=== PATIENT | male | born 1950 | race Asian ===

== ENCOUNTER 2024-01-25 12:34 | Outpatient (CLI) | payer MEDICARE, SELFPAY ==
--- NOTE | 2024-01-25 12:42 | ECHO_ITS ---
Patient Info Name: Gladys Latham Age: 73 years : 1950 Gender: Male Ht: 68 in Wt: 206 lbs BSA: 2.15 m2 HR: 100 bpm BP: 175 / 91 mmHg Heart Rhythm: Sinus Rhythm Technical Quality: Fair Exam Date: 01/25/2024 12:52 PM Exam Location: Echo Lab Patient Status: Outpatient Admit Date: 01/25/2024 Staff Ordering Physician: Fely Thompson MD Vehicle Check In Clerk: Shelly Whitman RDCS Attending Provider: Fely Thompson MD Exam Type: CA echo doppler color flow Study Info Indications R01.1 - Cardiac murmur, unspecified Complete two-dimensional, color flow and Doppler transthoracic echocardiogram is performed. Summary 1. Complete two-dimensional, color flow and Doppler transthoracic echocardiogram is performed. 2. Left ventricular chamber dimension is normal. 3. Left ventricular systolic function is normal, estimated at 65-70%. 4. The left ventricular diastolic function is grade I diastolic dysfunction. 5. E/e' 16 is elevated. 6. There is moderate aortic valve sclerosis. 7. The mitral valve has moderately calcified annulus. 8. There is trace tricuspid valve regurgitation. 9. No pulmonary hypertension, estimated pulmonary arterial systolic pressure is 22 mmHg. Left Ventricle E/e' 16 is elevated. Left ventricular chamber dimension is normal. Left ventricular systolic function is normal, estimated at 65-70%. The left ventricular diastolic function is grade I diastolic dysfunction. Right Ventricle Right ventricular systolic function is normal and with normal TAPSE 2.0 cm. Right ventricular chamber dimension is normal. Left Atria Left atrial chamber dimension is normal. Right Atria Right atrial chamber dimension is normal. Aortic Valve The aortic valve is trileaflet. There is moderate aortic valve sclerosis. There is no aortic valve stenosis. There is no aortic valve regurgitation. Pulmonic Valve There is no pulmonic regurgitation. Mitral Valve The mitral valve has moderately calcified annulus. There is no mitral valve stenosis. There is no mitral valve regurgitation. Tricuspid Valve There is trace tricuspid valve regurgitation. No pulmonary hypertension, estimated pulmonary arterial systolic pressure is 22 mmHg. Pericardium/Pleural There is no pericardial effusion. Inferior Vena Cava Normal inferior vena cava with >50% collapse upon inspiration consistent with normal right atrial pressure, 5 mmHg. Aorta The aortic root size at the sinus of Valsalva is normal. Left Ventricular Outflow Tract Name Value Normal LVOT 2D LVOT Diameter 2.0 cm LVOT Doppler LVOT Peak Gradient 10 mmHg LVOT Mean Gradient 5 mmHg LVOT VTI 27 cm LVOT VTI/AV VTI Ratio 0.8 LVOT Stroke Volume 80 ml LVOT CO 7.0 l/min LVOT CI 3.2 l/min/m2 Pulmonic Valve Name Value Normal RVOT Doppler
== END 2024-01-25 12:35 | disposition home or self-care (01) ==
LOC: ANHCARD 12:37
PROVIDERS: PCP Family Medicine; Visit Provider Family Medicine
DX: R01.1 Cardiac murmur, unspecified (principal); I11.9 Hypertensive heart disease without heart failure; I35.8 Other nonrheumatic aortic valve disorders; I34.81 Nonrheumatic mitral (valve) annulus calcification
CPT/HCPCS: 93306

== ENCOUNTER 2024-01-26 11:33 | Outpatient (CLI) | payer MEDICARE, SELFPAY ==
[2024-01-26 12:23] LABS: Alanine Aminotransferase 28 U/L (6-50); Albumin Level 4.5 g/dL (3.5-5.1); Alkaline Phosphatase 55 U/L (38-126); Anion Gap 9 mmol/L (4-12); Aspartate Amino Transferase 34 U/L (17-59); Bilirubin,Total 0.8 mg/dL (0.2-1.3); Blood Urea Nitrogen 11 mg/dL (9-20); Calcium 9.4 mg/dL (8.4-10.2); Carbon Dioxide 26 mmol/L (22-30); Chloride 99 mmol/L (98-107); Estimated Glomerular Filt Rate > 60; Glucose 91 mg/dL (65-110); Potassium 3.9 mmol/L (3.4-5.0); Sodium 134 mmol/L (137-145)
[2024-01-26 12:55] LABS: Vitamin D 25 Hydroxy 48.1 ng/mL
[2024-01-26 13:00] LABS: Hemoglobin A1C 6.3 % (<5.7)
[2024-01-26 13:08] LABS: MALB Creatinine Ratio 99.3 mg/g (0-30); Microalbumin Urine Random 39.7 mg/L (0-16.7)
[2024-01-30 16:09] LABS: PSA, Free 3.6 ng/mL; PSA, Total 11.3 ng/mL (< OR = 4.0); Percent Free Prostate Spec Ag NOT CALCULATED % (calc) (>25)
== END 2024-01-26 11:34 | disposition home or self-care (01) ==
PROVIDERS: PCP Family Medicine; Visit Provider Family Medicine
DX: E53.8 Deficiency of other specified B group vitamins (principal); E55.9 Vitamin D deficiency, unspecified; I10 Essential (primary) hypertension; R97.20 Elevated prostate specific antigen [PSA]; E11.9 Type 2 diabetes mellitus without complications
CPT/HCPCS: 36415; 80053; 82043; 82306; 82607; 83036; 84153; 84154; 84443

== ENCOUNTER 2024-09-27 11:34 | Outpatient (CLI) | payer MEDICARE, SELFPAY ==
--- NOTE | ~2024-09-27 | XR_ITS ---
Left Knee Technique: AP, lateral, and sunrise views were obtained. Clinical History: Pain Findings: No fracture or dislocation is seen. There is medial compartment narrowing with mild to mode rate tricompartmental osteophyte formation.. Soft tissues are unremarkable. No joint effusion is seen . Impression: Degenerative change, as above. Reviewed, dictated and finalized at location M. Impression: Degenerative change, as above.
--- OUTSIDE RECORDS SUMMARY | 2024-09-27 11:40 | XMS_ITS ---
Author Name Auto Generated, Auto Generated Organization [facility] Address [address] [place] [address] Phone [phone] Care Team Providers Care Hack Driver Name Role Phone Bryce Reyes Unavailable [phone] ChantaleCarey olveraangel luis Unavailable Functional Status No Results Mental Status No Results Allergies and Intolerances No Known Allergies Encounters Program Name Primary Diagnosis Admission Date/Time Dis charge Date/Time [facility] Tue[facility] 10 20:00:00 EDT 2023Feb 14 08:00:00 EDT 2023 [facility] TueSeptember 17 20:00:00 EDT 2024 null [facility] Aug 13 20:00 :00 EDT 2021 Problems Active Concerns * Sciatica, left side* Code: * Start Date: TueJul 05 00:00:00 EST 2022 * End Date: * Text: * Muscle weakness (generalized)* Code: * Start Date: TueJul 05 00:00:00 EST 2022 * End Date: * Text: * Low back pain, unspecified* Code: * Start Date: TueDec 11 00:00:00 EDT 2023 * End Date: * Text: * Weakness* Code: * Start Date: TueDec 11 00:00:00 EDT 2023 * End Date: * Text: Reason for Referral Past Medical History
--- OUTSIDE RECORDS SUMMARY | 2024-09-27 11:40 | XMS_ITS | Referral Summary ---
Author Organization [facility] Address Formerly [facility] [place] [address] Care Team Providers Care Administrative Liaison Name Role Phone Maxine Perez MD Primary Care Provider Encounters Date Type Department Care Team Description 08/29/2024 Orders Only [facility] Cardiology [address] [address] [address] [place] [address] ProviderNga MD 08/29/2024 10:45 AM CDT Office Visit [facility] Cardiology at [address] [place] [address] iNgel Thomson MD Essential (primary) hypertension (Primary Dx); Mixed dyslipidemia; PAD (peripheral artery disease) from Last 3 Months Allergies No known active allergies Medications psyllium husk, aspartame, (KONSYL SUGAR-FREE, ASPARTAME,) 3.5 gram/5.8 gram powder Active metFORMIN (GLUCOPHAGE) 500 mg tablet Take 1 tablet (500 mg total) by mouth 3 (three) times a day with meals 3 01/07/20 18 Active atorvastatin (LIPITOR) 10 mg tablet Take 1 tablet (10 mg total) by mouth daily Active aspirin 81 mg tablet Take 1 tablet (81 mg total) by mouth daily Active multivitamin capsule Take 1 capsule by mouth daily Active omega-3 fatty acids-fish oil 300-1,000 mg capsuleIndications :PAD (peripheral artery disease) Take 2 capsules (2 g total) by mouth daily Active doxazosin (CARDURA) 4 mg tabletIndications: Elevated PSA,Essential (primary) hypertension Take 1 tablet (4 mg total) by mouth nightly Combine with 2 mg tablet for 6 mg daily Active levothyroxine (SYNTHROID) 100 mcg tabletIndications: Acquired hypothyroidism Take 1 tablet (100 mcg total) by mouth lead 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 before breakfast Active tacrolimus (PROTOPIC) 0.03 % ointmentIndication s:Facial rash,Psoriasis Apply topically 2 (two) times a day To psoriasis rash on face 60 g 1 06/17/19 24 Active lisinopriL (PRINIVIL,ZESTRIL) 40 mg tabletIndications: Essential (primary) hypertension Take 1 tablet (40 mg total) by mouth daily 90 tablet 3 08/30/19 25 Active doxazosin (CARDURA) 2 mg tabletIndications: Elevated PSA,Essential (primary) hypertension Take 0.5 tablets (1 mg total) by mouth nightly Combines with 4 mg tablet for total dose of 6 mg daily 06/16/19 24 025 Discontin ued(Thera py completed ) lisinopriL (PRINIVIL,ZESTRIL) 20 mg tabletIndications: Essential (primary) hypertension Take 1 tablet (20 mg total) by mouth daily 025 Discontin ued(Reord er) Active Problems Problem Noted Date Diagnosed Date Mixed dyslipidemia 06/17/2023 Assessment & Plan (06/17/2023 2:09 PM PARCEL POST DELIVERY): Chronic. Tolerates cholesterol medication. Check and adjust as needed. LDL goal less than 70 with optimal less than 55 Psoriasis 06/17/2023 Assessment & Plan (06/17/2023 2:12 PM PARCEL POST DELIVERY): Mild issues but is struggling with some facial rash. Given high-risk distribution with see if insurance will cover a steroid sparing agent as first-line. If not covered they may require use of a topical corticosteroid but this would have to be with extreme caution Facial rash 06/17/2023 Assessment & Plan (06/17/2023 2:12 PM PARCEL POST DELIVERY): Acute. Likely due to psoriasis given he has a known diagnosis. While topical corticosteroids are often 1st line for treatment for psoriatic rash when localized given high-risk location adjacent to his left I am hesitant to use topical steroids on his face given this will likely be a more long-term issue. Given this we will see if insurance will cover a steroid sparing agent like tacrolimus. Prescription sent to the pharmacy. If not covered then we may have to do cautious use of triamcinolone but we would have to monitor for risk of skin pigment change or atrophy Class 1 obesity due to exces s calories with serious comorbidity and body mass index (BMI) of 31.0 to 31.9 in adult 06/17/2023 Assessment & Plan (06/17/2023 2:11 PM PARCEL POST DELIVERY): Chronic. Suboptimally controlled. 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 Does not tolerate digital rectal exam. Has remotely seen Urology but not recently Assessment & Plan (06/17/2023 2:06 PM PARCEL POST DELIVERY): Chronic elevation of around 10-12. Prostate MRI previously without signs of cancer but significant BPH. Getting serial PSA monitoring given can not tolerate digital rectal exam Nuclear sclerotic cataract of both eyes 07/26/19 19 Assessment & Plan (06/17/2023 2:05 PM PARCEL POST DELIVERY): Chronic. Reports mild. Follow up with off the further eval Glaucoma suspect of both eyes 07/05/2018 Assessment & Plan (06/17/2023 2:05 PM PARCEL POST DELIVERY): Reported diagnosis of borderline glaucoma. We will have him follow up with ophtho for monitoring Essential (primary) hypertension 11/23/2017 Assessment & Plan (06/17/2023 2:06 PM PARCEL POST DELIVERY): Chronic. Uncontrolled. Off his lisinopril. He will restart. Continue other medications. Blood pressure goal less than 140/90. Discussed home monitoring PAD (peripheral artery disease) 09/12/2017 Overview (06/17/2023): 08/24/2017. It demonstrated the possibility of 50-99% distal right SFA stenosis and a 20-49% mid to distal left SFA stenosis and left popliteal stenosis. Assessment & Plan (06/17/2023 2:07 PM PARCEL POST DELIVERY): Patient with peripheral arterial disease right greater than left on evaluation in 2018. No signs of claudication. Denies history of ulcerations. We will monitor for symptoms. If concerns arise then plan updated vascular evaluation. Continue risk factor modification with ASA and cholesterol control. LDL goal of a least less than 70 with optimal less than 55 Type 2 diabetes mellitus wit h diabetic peripheral angiopathy without gangrene, without long-term current use of insulin 09/08/2016 Assessment & Plan (06/17/2023 2:07 PM PARCEL POST DELIVERY): Diabetes is chronic and well controlled on current medication. Continue. Encouraged healthy diet, exercise, weight loss. Foot exam done today with some signs of decreased pulses in the right greater than left extremity consistent with known peripheral arterial disease finding. Discussed foot care. We will refer to ortho for routine eye care. Check updated diabetic labs History of colon polyps 06/29/2016 Assessment & Plan (06/17/2023 2:08 PM PARCEL POST DELIVERY): Patient is due for repeat colonoscopy. He would like to reach out to his previous mail handler to see they are able to perform this. Otherwise he will let me refer him to 1 of our specialists. Degenerative arthritis of left knee 06/29/2016 EDDA on CPAP 06/02/2015 Assessment & Plan (06/17/2023 2:06 PM PARCEL POST DELIVERY): Chronic. Reports good compliance with CPAP nightly. Monitor History of anal fissures 04/21/2011 Assessment & Plan (06/17/2023 2:08 PM PARCEL POST DELIVERY): Patient reports he can not tolerate digital rectal exams and that this precludes some of the evaluation for elevated PSA other than doing prostate MRIs and PSAs Hypothyroidism 02/16/2010 Assessment & Plan (06/17/2023 2:06 PM PARCEL POST DELIVERY): Chronic. Clinically euthyroid. 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 06/17/2023 Screening for colon cancer 10/25/2017 0 06/17/2023 Overview (10/25/2017): Added automatically from request for surgery [id number] Memory loss 09/22/2016 06/17/2023 Allergy history, penicillin 06/29/2016 06/17/2023 Overview (06/17/2023): Had negative testing on allergy testng Seborrheic dermatitis of scalp 06/29/2016 06/17/2023 Combined forms of age-related cataract 06/18/2015 06/17/2023 Phimosis 06/02/2015 06/17/2023 Immunizations Immunization Administration Dates Next Due Influenza, Quadrivalent, Spl it, Preservative Free, Intramuscular 01/21/2015 Influenza, Trivalent, High D ose, Split, Preservative Free, Intramuscular 01/11/2019,03/02/2018,01/17/2018,01/16,01/18/2017,01/19/2016 Influenza, Trivalent, IM (MDV) 9,02/09/2007,02/11/2006,02/23 Influenza, Unspecified 01/30/2021,01/31/2020 Pneumococcal Conjugate PCV 13 05/14/2014 Pneumococcal Polysaccharide PPV23 03/29/2018, Tdap 07/26/2016,09/09/2010 ZOSTER LIVE 03/15/2013 ZOSTER Recombinant 11/27/2018,08/15/2018 Social History Tobacco Use Types Packs/Day Years Used Date Smoking Tobacco: Former Cigarettes 1 22.7 0 06/30/1970 - 03/02/1993 Smokeless Tobacco: Never Tobacco Cessation:Counseling Given: Not Answered Alcohol Use Standard Drinks/Week Comments Never 0 (1 standard drink = 0.6 oz pur e alcohol) AUDIT-C Answer Date Recorded Frequency of Alcohol Consumption Never 03/20/2019 Average Number of Drinks Not on file 019 Frequency of Binge Drinking Not on file 03/02 PHQ-2 Answer Date Recorded PHQ-2 Total Score (If total score is 3 or more points, staff should administer the PHQ-9) 4 06/17/2023 Sex and Gender Information Value Date Recorded Sex Assigned at Not on file Legal Sex Male 8:08 PM PARCEL POST DELIVERY Gender Identity Not on file Sexual Orientation Not on file Last Filed Vital Signs Vital Sign Reading Time Taken Comments Blood Pressure 126/74 08/29/2024 11:02 AM CDT Pulse 103 08/29/2024 11:02 AM CDT Temperature 36.6 C (97.9 F) 03/03/2018 10:03 AM CDT Respiratory Rate 16 03/03/2018 10:15 AM CDT Oxygen Saturation 97% 08/29/2024 11:02 AM CDT Inhaled Oxygen Concentration - - Weight 96.2 kg (212 lb) 08/29/2024 11:02 AM CDT Height 172.7 cm (5' 8) 08/29/2024 11:02 AM CDT Body Mass Index 32.23 08/29/2024 11:02 AM CDT Plan of Treatment Not on file Procedures Procedure Name Priority Date/Time Associated Diagnosis Comments EGFR Routine 08/03/2023 10:19 AM CDT Myxedema heart disease Mixed hyperlipidemia HEMOGLOBIN A1C Routine 08/03/2023 10:19 AM CDT Myxedema heart disease Mixed hyperlipidemia Diabetes mellitus, Guillermo's disease and myxedema (HCC) LIPID PANEL Routine 08/03/2023 10:19 AM CDT Myxedema heart disease Mixed hyperlipidemia COLONOSCOPY 03/03/2018 9:29 AM CDT from Last 3 Months or Most Recently Relevant to Health Maintenance Results * eGFR (08/03/2023 10:19 AM CDT) eGFR >90 >=60 mL/min/1. 73 m2 Comment: Interpretive Data Reference Interval Normal >/= 90 mL/min/1.73m2 Mildly decreased* 60 - 89 mL/min/1.73m2 Mildly to moderately decreased 45 - 59 mL/min/1.73m2 Moderately to severely decreased 30 - 44 mL/min/1.73m2 Severely decreased 15 - 29 mL/min/1.73m2 Kidney Failure < 15 mL/min/1.73m2 *Relative to young adult level Estimated glomerular filtration rate is determined by the 2020 CKD-EPI equation recommended by the National Kidney Foundation (A Unifying Approach to GFR Estimation: Recommendations of the NKF-ASK Task Force on Reassessing the Inclusion of Race in Diagnosing Kidney Disease, JASN 202). The CKD-EPI equation should not be used for patients with unstable renal function and has not been validated in children and those over 70. Current interpretive data was last reviewed 2021. Blood 08/03/2023 10:1 9 AM CDT 08/03/2023 2:05 PM CDT us Bryce Reyes MD LAB BLOOD ORDERABLES Final Resul t Performing Organization Address City/[facility] Co de Phone Number JERAMY FOWLER [address] [place] [address] * (ABNORMAL) Hemoglobin A1c (08/03/2023 10:19 AM CDT) Hgb A1C 6.2(H) 4.0 - 5.6 % Estimated Average Glucose 131 mg/dL JERAMY FOWLER Comment: The ADA recommends reporting an estimated Average Glucose (eAG) with all Hemoglobin A1c results using the equation derived from a study of 507 normal and diabetic adults. Minority populations were underrepresented and children were not included. (Diabetes Care 31:0278-8270, 2008). The eAG is not equivalent to a fasting glucose. Blood Venous blood specimen / Unknown 08/03/2023 10:19 AM CDT 08/03/2023 1:57 PM CDT Narrative JERAMY FOWLER - 08/03/2023 3:12 PM CDT Fax results to Dr Eric Wu [phone] Bryce Reyes MD LAB BLOOD ORDERABLES Final Resul t Performing Organization Address City/[facility]/ZIP Co de Phone Number JERAMY FOWLER [phone] [place], [place] [id number] * Lipid panel (08/03/2023 10:19 AM CDT) Cholesterol 113 30 - 199 mg/dL Comment: Interpretive Data Ages < or = 19 years Acceptable: <170 mg/dL Borderline high: 170-199 mg/dL High: >or= 200 mg/dL Ages > or = 20 years Desirable: <200 mg/dL Borderline high: 200-239 mg/dL High: >or= 240 mg/dL Literature References: 1. Expert Panel on Integrated Guidelines for Cardiovascular Health and Risk Reduction in Children and Adolescents. Pediatrics 2011;128:S213 2. NCEP Expert Panel. Circulation 2004;110:227 Current Interpretive Data was last revised on 2017. Triglycerides 49 <=149 mg/dL JERAMY FOWLER Comment: Interpretive Data Ages < or = 9 years Acceptable: <75 mg/dL Borderline high: 75-99 mg/dL High: >or= 100 mg/dL Ages 10 to 20 years Acceptable: <90 mg/dL Borderline high: 90-129 mg/dL High: >or= 130 mg/dL Ages > or = 20 years Desirable: <150 mg/dL Borderline high: 150-199 mg/dL High: 200-499 mg/dL Very high: >or= 499 mg/dL Literature References: 1. Expert Panel on Integrated Guidelines for Cardiovascular Health and Risk Reduction in Children and Adolescents. Pediatrics 2011;128:S213 2. NCEP Expert Panel. Circulation 2004;110:227 Current Interpretive Data was last revised on 2017. HDL 53 >=40 mg/dL JERAMY FOWLER Comment: Interpretive Data Ages < or = 19 years Acceptable: >45 mg/dL Borderline low: 40-45 mg/dL Low: <40 mg/dL Ages > or = 20 years Desirable: >or= 60 mg/dL Low: <40 mg/dL Literature References: 1. Expert Panel on Integrated Guidelines for Cardiovascular Health and Risk Reduction in Children and Adolescents. Pediatrics 2011;128:S213 2. NCEP Expert Panel. Circulation 2004;110:227 Current Interpretive Data was last revised on 2017. LDL, calculated 50 <=129 mg/dL JERAMY FOWLER Comment: Interpretive Data Ages < or = 19 years Acceptable: <110 mg/dL Borderline high: 110-129 mg/dL High: >or= 130 mg/dL Ages > or = 20 years Optimal: <100 mg/dL Near optimal: 100-129 mg/dL Borderline high: 130-159 mg/dL High: >160 mg/dL Literature References: 1. Expert Panel on Integrated Guidelines for Cardiovascular Health and Risk Reduction in Children and Adolescents. Pediatrics 2011;128:S213 2. NCEP Expert Panel. Circulation 2004;110:227 Current Interpretive Data was last revised on 2017. Non-HDL Cholesterol 60 mg/dL JERAMY FOWLER Comment: Interpretive Data Ages < or = 19 years Acceptable: <120 mg/dL Borderline high: 120-144 mg/dL High: >145 mg/dL Ages > or = 20 years When triglycerides are >200 mg/dL, Non-HDL cholesterol is a secondary target of therapy with treatment goals that are 30 mg/dL greater than the LDL cholesterol target. Literature References: 1. Expert Panel on Integrated Guidelines for Cardiovascular Health and Risk Reduction in Children and Adolescents. Pediatrics 2011;128:S213 2. NCEP Expert Panel. Circulation 2004;110:227 Current Interpretive Data was last revised on 2017. Chol/HDL ratio 2 JERAMY Blood Venous blood specimen / Unknown 08/03/2023 10:19 AM CDT 08/03/2023 1:57 PM CDT Narrative JERAMY FOWLER - 08/03/2023 3:13 PM CDT Fax results to Dr Eric Wu [phone] Bryce Reyes MD LAB BLOOD ORDERABLES Final Resul t JERAMY [address] [address] [place] [address] * COLONOSCOPY (03/03/2018 9:29 AM CDT) Anatomical Region Laterality Modality Other Narrative Procedure Note Luis E Mcqueen MD - 03/03/2018 9:29 AM CDT ENDOSCOPY LAB Patient Name: Edita Lopez Procedure Date: 03/03/2018 9:29 AM Date of : 1950 Admit Type: Outpatient Age: 68 Gender: Male Attending MD: Luis E Mcqueen M.D. Room: [address] [id number] Note Status: Finalized Procedure Date No Time: 03/03/2018 Procedure: Colonoscopy Indications: High risk colon cancer surveillance: Personal historyof colonic polyps, Last colonoscopy: 2011 Providers: Luis E Mcqueen M.D. Referring MD: Medicines: General Anesthesia Complications: No immediate complications. Estimated blood loss:Minimal. Estimated Blood Loss: Estimated blood loss was minimal. Procedure: Pre-Anesthesia Assessment: - Immediately prior to administration of medications,the patient was re-assessed for adequacy to receivesedatives. - Sedation was administered by an anesthesiaprofessional. General anesthesia was attained. - The heart rate, respiratory rate, oxygen saturations, blood pressure, adequacy of pulmonary ventilation, and response to care were monitored throughout theprocedure. - The physical status of the patient was re-assessedafter the procedure. The benefits, risks and alternatives of the procedureand sedation were discussed and informed consent wasobtained. All questions were answered. Please refer to the signed informed consent document in the medical record. Thescope was passed under direct vision. The [id number] introduced through the anus and advanced to the thececum, identified by appendiceal orifice and ileocecal valve.The colonoscopy was performed with ease. The patienttolerated the procedure well. The quality of the bowelpreparation was excellent. The quality of the bowel preparation was evaluated using the BBPS ([place] Bowel PreparationScale) with scores of: Right Colon = 3, Transverse Colon = 3and Left Colon = 3. The total BBPS score equals 9. Findings: A 5 mm polyp was found in the ascending colon. The polyp was removed with a cold biopsy forceps. Resection and retrieval were complete. Estimated blood loss was minimal. A 5 mm polyp was found in the rectum. The polyp was removed with acold biopsy forceps. Resection and retrieval were complete. Estimatedblood loss was minimal. Impression: - One 7 mm polyp in the ascending colon. Resected and retrieved. - One 7 mm polyp in the rectum. Resected andretrieved. Recommendation: - Await pathology results. - Repeat colonoscopy in 5 years for surveillance. Electronically signed by Dr.Matthew Richar M.D. Luis E Mcqueen M.D. 03/03/2018 10:03:21 AM Number of Addenda: 0 Note Initiated On: 03/03/2018 9:29 AM Luis E Mcqueen MD ENDOSCOPY PROCEDURES Final R esult from Last 3 Months or Most Recently Relevant to Health Maintenance Insurance MEDICARE [facility] * Guarantor: Edita Lopez Account Type Relation to Patient Date of Phone Billing Address Personal/Family Self 1950 [address] [place] [address] MEDICARE [facility] * Guarantor: Edita Lopez Account Type Relation to Patient Date of Phone Billing Address Personal/Family Self 1950 [address] [place] [address] MEDICARE [facility] MEDICARE SUPPLEMENT Advance Directives For more information, please contact: [phone] * Full Code (Latest Code Status on File) Date Activated Date Inactivated Comments 03/03/2018 9:15 AM 03/03/2018 12:47 PM Care Teams Administrative Liaison Relationship Specialty Start Date End Date Maxine Perez MD PCP - General Family Medicine 06/17/23
--- OUTSIDE RECORDS SUMMARY | 2024-09-27 11:40 | XMS_ITS | Clinical Summary ---
Author Organization [facility] Address [address] [place] [address] Care Team Providers Care Endoscopy Support Specialist Name Role Phone Maxine Perez MD Primary Care Provider Allergies No known active allergies Medications psyllium [...] 1 tablet (100 mcg total) by mouth extension service specialist before breakfast Active tacrolimus (PROTOPIC) 0.03 % [...] 06/17/2023 Assessment & Plan (06/17/2023 2:09 PM CHRISTIAN COUNSELOR): Chronic. Tolerates cholesterol medication. Check and adjust as needed. LDL goal less than 70 with optimal less than 55 Psoriasis 06/17/2023 Assessment & Plan (06/17/2023 2:12 PM CHRISTIAN COUNSELOR): Mild issues but is struggling with some facial rash. Given high-risk distribution with see if insurance will cover a steroid sparing agent as first-line. If not covered they may require use of a topical corticosteroid but this would have to be with extreme caution Facial rash 06/17/2023 Assessment & Plan (06/17/2023 2:12 PM CHRISTIAN COUNSELOR): Acute. Likely due to psoriasis given he [...] 06/17/2023 Assessment & Plan (06/17/2023 2:11 PM CHRISTIAN COUNSELOR): Chronic. Suboptimally controlled. 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 Does not tolerate digital rectal exam. Has remotely seen Urology but not recently Assessment & Plan (06/17/2023 2:06 PM CHRISTIAN COUNSELOR): Chronic elevation of around 10-12. Prostate MRI previously without signs of cancer but significant BPH. Getting serial PSA monitoring given can not tolerate digital rectal exam Nuclear sclerotic cataract of both eyes 07/26/19 19 Assessment & Plan (06/17/2023 2:05 PM CHRISTIAN COUNSELOR): Chronic. Reports mild. Follow up with off the further eval Glaucoma suspect of both eyes 07/05/2018 Assessment & Plan (06/17/2023 2:05 PM CHRISTIAN COUNSELOR): Reported diagnosis of borderline glaucoma. We will have him follow up with ophtho for monitoring Essential (primary) hypertension 11/23/2017 Assessment & Plan (06/17/2023 2:06 PM CHRISTIAN COUNSELOR): Chronic. Uncontrolled. Off his lisinopril. He will restart. Continue other medications. Blood pressure goal less than 140/90. Discussed home monitoring PAD (peripheral artery disease) 09/12/2017 Overview (06/17/2023): 08/24/2017. It demonstrated the possibility of 50-99% distal right SFA stenosis and a 20-49% mid to distal left SFA stenosis and left popliteal stenosis. Assessment & Plan (06/17/2023 2:07 PM CHRISTIAN COUNSELOR): Patient with peripheral arterial disease right greater [...] 09/08/2016 Assessment & Plan (06/17/2023 2:07 PM CHRISTIAN COUNSELOR): Diabetes is chronic and well controlled on [...] 06/29/2016 Assessment & Plan (06/17/2023 2:08 PM CHRISTIAN COUNSELOR): Patient is due for repeat colonoscopy. 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 Otherwise he will let me refer him to 1 of our specialists. Degenerative arthritis of left knee 06/29/2016 EDDA on CPAP 06/02/2015 Assessment & Plan (06/17/2023 2:06 PM CHRISTIAN COUNSELOR): Chronic. Reports good compliance with CPAP nightly. Monitor History of anal fissures 04/21/2011 Assessment & Plan (06/17/2023 2:08 PM CHRISTIAN COUNSELOR): Patient reports he can not tolerate digital rectal exams and that this precludes some of the evaluation for elevated PSA other than doing prostate MRIs and PSAs Hypothyroidism 02/16/2010 Assessment & Plan (06/17/2023 2:06 PM CHRISTIAN COUNSELOR): Chronic. Clinically euthyroid. 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 06/17/2023 Screening for colon cancer 10/25/2017 0 06/17/2023 Overview (10/25/2017): Added automatically from request for surgery [id number] Memory loss 09/22/2016 06/17/2023 Allergy history, penicillin 06/29/2016 06/17/2023 Overview (06/17/2023): Had negative testing on allergy testng Seborrheic dermatitis of scalp 06/29/2016 06/17/2023 Combined forms of age-related cataract 06/18/2015 06/17/2023 Phimosis 06/02/2015 06/17/2023 Encounters Date Type Department Care Team Description 08/29/2024 10:45 AM CDT Office Visit [facility] Cardiology at [address] [place] [address] Nigel Thomson MD Essential (primary) hypertension (Primary Dx); Mixed dyslipidemia; PAD (peripheral artery disease) 08/29/2024 Orders Only [facility] [address] [place] [address] Provider, MD Nga from Last 3 Months Immunizations Immunization Administration Dates Next Due Influenza, Quadrivalent, Spl it, Preservative Free, Intramuscular 01/21/2015 Influenza, Trivalent, High D ose, Split, Preservative Free, Intramuscular 01/11/2019,03/02/2018,01/17/2018,01/16,01/18/2017,01/19/2016 Influenza, Trivalent, IM (MDV) 9,02/09/2007,02/11/2006,02/23 Influenza, Unspecified 01/30/2021,01/31/2020 Pneumococcal Conjugate PCV 13 05/14/2014 Pneumococcal Polysaccharide PPV23 03/29/2018, Tdap 07/26/2016,09/09/2010 ZOSTER LIVE 03/15/2013 ZOSTER Recombinant 11/27/2018,08/15/2018 Surgical History Surgery Date Site/Laterality Comments NO PAST SURGERIES Medical History Medical History Date Comments Personal history of other di seases of the circulatory system History of hypertension - (A dded by TONY Harrison) Sleep disorder not due to lockhart bstance or known physiological condition 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 (Added by TONY Harrison) History of colonic polyps Glaucoma Sleep apnea Diabetes mellitus (HCC) Hypertension Hypothyroid Arthritis 15 years ago Benign prostatic hyperplasia 3 years ago Family History Medical History Relation Name Comments Heart disease Father Tremayne Family history of cardiac disorder - (Added by TW Conv) Hyperlipidemia Father Tremayne Hypertension Father Tremayne Family history of hypertension - (Added by TW Conv) Arthritis Mother Ramses Family history of arthritis - (Added by TW Conv) Hypertension Mother Ramses Family history of hypertension - (Added by TW Conv) Arthritis Sister 1 Rasheeda Diabetes Sister 1 Rasheeda Family history of diabetes mellitus - (Added by TW Conv) Heart disease Sister 1 Rasheeda Hypertension Sister 1 Rasheeda Hypertension Sister 2 Family history of hypertension - (Added by TW Conv) Colon cancer Neg Hx Prostate cancer Neg Hx Relation Name Status Comments Father Tremayne Mother Ramses Sister 1 Rasheeda Sister 2 Social History Tobacco Use Types Packs/Day Years [...] on file Legal Sex Male 8:08 PM CHRISTIAN COUNSELOR Gender Identity Not on file Sexual Orientation Not on file Obstetrics History Last Filed Vital Signs Vital Sign Reading [...] 08/29/2024 11:02 AM CDT Plan of Treatment Health Maintenance Due Date Last Done Comments Albumin Creatinine Ratio, Urine 1950 Hepatitis C Screening 1950 Dilated Eye Exam 1950 Hepatitis B Screening 02/29/1968 Abdominal Aortic Aneurysm (A AA) Screen 2015 Well Visit 65+ 2015 Colon Cancer Screening-Colonoscopy 03/03/2023 03/03/2018 Covid-19 Vaccine (3 - 2023-2 5 season) 2024 06/26/2020, 05/29/2020 Hemoglobin A1C 02/02/2024 08/03/2023, 06/17/2023 Depression Screening 06/17/2024 06/17/2023, 06/17/19 Fall Risk Assessment 06/17/2024 06/17/2023 Foot Exam 06/17/2024 06/17/2023 Lipid Panel 08/02/2024 08/03/2023, 06/02, 02/06/2019 eGFR 08/02/2024 08/03/2023 Influenza Vaccine (Season Ended) 2024 02/18/2023, 01/30/2021, 01/31/2020, Additional history exists DTaP/Tdap/Td Vaccine (3 - Td or Tdap) 07/26/2026 07/26/2016, 09/09/2010 Colon Cancer Screening-CT Colonography Discontinued 03/03/2018 Colon Cancer Screening-DNA Stool Discontinued 03/03/20 Colon Cancer Screening-FIT Discontinued 03/03/2018 Colon Cancer Screening-Sigmoidoscopy Discontinued 03/03/2018 Pneumococcal vaccine 65+ Completed 018, 05/14/2014, 12/17/2005 Zoster Vaccine Completed 11/27/2018, 07/31, 03/15/2013 Procedures Procedure Name Priority Date/Time Associated Diagnosis Comments EGFR Routine 08/03/2023 10:19 AM CDT Myxedema heart disease Mixed hyperlipidemia HEMOGLOBIN A1C Routine 08/03/2023 10:19 AM CDT Myxedema heart disease Mixed hyperlipidemia Diabetes mellitus, Klemme's disease and myxedema (HCC) LIPID PANEL Routine [...] of Race in Diagnosing Kidney Disease, JASN 2020). The CKD-EPI equation should not be used for patients with unstable renal function and has not been validated in children and those over 70. Current interpretive data was last reviewed 2021. Blood 08/03/2023 10:1 9 AM CDT 08/03/2023 2:05 PM CDT us Bryce Reyes MD LAB BLOOD ORDERABLES Final Resul t JERAMY [id number] Department [place] [address] * (ABNORMAL) Hemoglobin A1c (08/03/2023 10:19 AM CDT) Hgb A1C 6.2(H) 4.0 - 5.6 % Estimated Average Glucose 131 mg/dL JERAMY FOWLER Comment: The ADA recommends reporting an estimated Average Glucose (eAG) with all Hemoglobin A1c results using the equation derived from a study of 507 normal and diabetic adults. Minority populations were underrepresented and children were not included. (Diabetes Care 31:5035-6608, 2008). The eAG is not equivalent to a fasting glucose. Blood Venous blood specimen / Unknown 08/03/2023 10:19 AM CDT 08/03/2023 1:57 PM CDT Narrative JERAMY FOWLER - 08/03/2023 3:12 PM CDT Fax results to Dr Eric Wu [phone] us Bryce Reyes MD LAB BLOOD ORDERABLES Final Resul t [facility] [id number] Department [place] [address] * Lipid panel (08/03/2023 10:19 AM CDT) [...] Pediatrics 2011;128:S213 2. NCEP Expert Panel. Circulation 2003;110:227 Current Interpretive Data was last revised on 2017. Chol/HDL ratio 2 JERAMY Blood Venous blood specimen / Unknown 08/03/2023 10:19 AM CDT 08/03/2023 1:57 PM CDT Narrative JERAMY FOWLER - 08/03/2023 3:13 PM CDT Fax results to Dr Eric Wu [phone] us Bryce Reyes MD LAB BLOOD ORDERABLES Final Resul t [facility] [id number] Department [place] [address] * COLONOSCOPY (03/03/2018 9:29 AM CDT) Anatomical Region Laterality Modality Other Narrative Procedure Note Luis E Mcqueen MD - 03/03/2018 9:29 AM CDT ENDOSCOPY LAB Patient Name: Edita Lopez Procedure Date: 03/03/2018 9:29 AM Date of : 1950 Admit Type: Outpatient Age: 68 Gender: Male Attending MD: Luis E Mcqueen M.D. Room: [place] [address] Note Status: Finalized Procedure Date No Time: [...] Thescope was passed under direct vision. The [id number] introduced through the anus and advanced to the thececum, identified by appendiceal orifice and ileocecal valve.The colonoscopy was performed with ease. The patienttolerated the procedure well. The quality of the bowelpreparation was excellent. The quality of the bowel preparation was evaluated using the BBPS ([place] Bowel PreparationScale) with scores of: Right Colon [...] 0 Note Initiated On: 03/03/2018 9:29 AM us Luis E Mcqueen MD ENDOSCOPY PROCEDURES Final R esult from Last 3 Months or Most Recently Relevant to Health Maintenance Insurance MEDICARE [facility] MEDICARE [facility] MEDICARE [facility] MEDICARE SUPPLEMENT Advance Directives For more information, please contact: [phone] * Full Code (Latest Code Status on File) Date Activated Date Inactivated Comments 03/03/2018 9:15 AM 03/03/2018 12:47 PM Care Teams Endoscopy Support Specialist Relationship Specialty Start Date End Date Maxine Perez MD PCP - General Family Medicine 06/17/23
--- OUTSIDE RECORDS SUMMARY | 2024-09-27 11:40 | XMS_ITS ---
Author Name Auto Generated, Auto Generated Organization [facility] Address [address] [place] [address] Phone [phone] Care Team Providers Care Wagon Driver Salesperson Name Role Phone Bryce Reyes Unavailable [phone] ChantaleCarey olveraangel luis Unavailable Functional Status No Results Mental Status No Results Allergies and Intolerances No Known Allergies Encounters Program Name Primary Diagnosis Admission Date/Time Dis charge Date/Time null Mayuri Aug 13 20:00 :00 EDT 2021 [facility] Tue[facility] 17 20:00:00 EDT 2024 [facility] TueDec 10 20:00:00 EDT 2023Feb 14 08:00:00 EDT 2023 Problems Active Concerns * Sciatica, left side* [...]
== END 2024-09-27 11:35 | disposition home or self-care (01) ==
PROVIDERS: PCP Family Medicine; Visit Provider Family Medicine
DX: M17.12 Unilateral primary osteoarthritis, left knee (principal)
CPT/HCPCS: 73564

== ENCOUNTER 2024-10-12 09:58 | Outpatient (CLI) | payer MEDICARE, SELFPAY ==
--- OUTSIDE RECORDS SUMMARY | 2024-10-12 10:07 | XMS_ITS | Clinical Summary ---
Author Organization [facility] Address [facility] [place] [address] Care Team Providers Care Sand Digger Name Role Phone Maxine Perez MD Primary Care Provider Allergies No known active allergies Medications psyllium husk, aspartame, (KONSYL SUGAR-FREE, ASPARTAME,) 3.5 gram/5.8 gram powder Active metFORMIN (GLUCOPHAGE) 500 mg tablet Take 1 tablet (500 mg total) by mouth 3 (three) times a day with meals 3 8 Active atorvastatin (LIPITOR) 10 mg tablet Take [...] 1 tablet (100 mcg total) by mouth continuous crusher operator before breakfast Active tacrolimus (PROTOPIC) 0.03 % ointmentIndication s:Facial rash,Psoriasis Apply topically 2 (two) times a day To psoriasis rash on face 60 g 1 4 Active lisinopriL (PRINIVIL,ZESTRIL) 40 mg tabletIndications: Essential (primary) hypertension Take 1 tablet (40 mg total) by mouth daily 90 tablet 3 5 Active Active Problems Problem Noted Date Diagnosed Date Mixed dyslipidemia 06/17/2023 Assessment & Plan (06/17/2023 2:09 PM DAIRY TECHNOLOGIST): Chronic. Tolerates cholesterol medication. Check and adjust as needed. LDL goal less than 70 with optimal less than 55 Psoriasis 06/17/2023 Assessment & Plan (06/17/2023 2:12 PM DAIRY TECHNOLOGIST): Mild issues but is struggling with some facial rash. Given high-risk distribution with see if insurance will cover a steroid sparing agent as first-line. If not covered they may require use of a topical corticosteroid but this would have to be with extreme caution Facial rash 06/17/2023 Assessment & Plan (06/17/2023 2:12 PM DAIRY TECHNOLOGIST): Acute. Likely due to psoriasis given he [...] 06/17/2023 Assessment & Plan (06/17/2023 2:11 PM DAIRY TECHNOLOGIST): Chronic. Suboptimally controlled. 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 Does not tolerate digital rectal exam. Has remotely seen Urology but not recently Assessment & Plan (06/17/2023 2:06 PM DAIRY TECHNOLOGIST): Chronic elevation of around 10-12. Prostate MRI previously without signs of cancer but significant BPH. Getting serial PSA monitoring given can not tolerate digital rectal exam Nuclear sclerotic cataract of both eyes 07/26/19 19 Assessment & Plan (06/17/2023 2:05 PM DAIRY TECHNOLOGIST): Chronic. Reports mild. Follow up with off the further eval Glaucoma suspect of both eyes 07/05/2018 Assessment & Plan (06/17/2023 2:05 PM DAIRY TECHNOLOGIST): Reported diagnosis of borderline glaucoma. We will have him follow up with ophtho for monitoring Essential (primary) hypertension 11/23/2017 Assessment & Plan (06/17/2023 2:06 PM DAIRY TECHNOLOGIST): Chronic. Uncontrolled. Off his lisinopril. He will restart. Continue other medications. Blood pressure goal less than 140/90. Discussed home monitoring PAD (peripheral artery disease) 09/12/2017 Overview (06/17/2023): 08/24/2017. It demonstrated the possibility of 50-99% distal right SFA stenosis and a 20-49% mid to distal left SFA stenosis and left popliteal stenosis. Assessment & Plan (06/17/2023 2:07 PM DAIRY TECHNOLOGIST): Patient with peripheral arterial disease right greater [...] 09/08/2016 Assessment & Plan (06/17/2023 2:07 PM DAIRY TECHNOLOGIST): Diabetes is chronic and well controlled on [...] 06/29/2016 Assessment & Plan (06/17/2023 2:08 PM DAIRY TECHNOLOGIST): Patient is due for repeat colonoscopy. He would like to reach out to his previous rn midwife to see they are able to perform this. Otherwise he will let me refer him to 1 of our specialists. Degenerative arthritis of left knee 06/29/2016 EDDA on CPAP 06/02/2015 Assessment & Plan (06/17/2023 2:06 PM DAIRY TECHNOLOGIST): Chronic. Reports good compliance with CPAP nightly. Monitor History of anal fissures 04/21/2011 Assessment & Plan (06/17/2023 2:08 PM DAIRY TECHNOLOGIST): Patient reports he can not tolerate digital rectal exams and that this precludes some of the evaluation for elevated PSA other than doing prostate MRIs and PSAs Hypothyroidism 02/16/2010 Assessment & Plan (06/17/2023 2:06 PM DAIRY TECHNOLOGIST): Chronic. Clinically euthyroid. 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 Cardiology at [address] [place] [address] Nigel Thomson MD Essential (primary) hypertension (Primary Dx); Mixed dyslipidemia; PAD (peripheral artery disease) 08/29/[address] 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 (Added by TW Conv) History of colonic polyps Glaucoma Sleep apnea [...] on file Legal Sex Male 8:08 PM DAIRY TECHNOLOGIST Gender Identity Not on file Sexual Orientation [...] Colon Cancer Screening-Colonoscopy 03/03/2023 03/03/2018 Covid-19 Vaccine (2023-2 5 season) 2024 06/26/2020, 05/29/2020 Hemoglobin A1C [...] 9 AM CDT 08/03/2023 2:05 PM CDT Bryce Reyes MD LAB BLOOD ORDERABLES Final Resul t Performing Organization Address [facility] de Phone Number JERAMY [address] [place] [address] * (ABNORMAL) Hemoglobin A1c (08/03/2023 10:19 AM CDT) Hgb A1C 6.2(H) 4.0 - 5.6 % Estimated Average Glucose 131 mg/dL JERAMY FOWLER Comment: The ADA recommends reporting an estimated Average Glucose (eAG) with all Hemoglobin A1c results using the equation derived from a study of 507 normal and diabetic adults. Minority populations were underrepresented and children were not included. (Diabetes Care 31:1214-0744, 2008). The eAG is not equivalent to a fasting glucose. Blood Venous blood specimen / Unknown 08/03/2023 10:19 AM CDT 08/03/2023 1:57 PM CDT Narrative JERAMY FOWLER - 08/03/2023 3:12 PM CDT Fax results to Dr Eric Wu [phone] Bryce Reyes MD LAB BLOOD ORDERABLES Final Resul t Performing Organization Address [facility] Co de Phone Number JERAMY [address] [place] [address] * Lipid panel (08/03/2023 10:19 AM CDT) [...] CDT Fax results to Dr Eric Wu [phone] us Bryce Reyes MD LAB BLOOD ORDERABLES Final Resul t [facility] [address] [address] Department [place] [address] * COLONOSCOPY (03/03/2018 9:29 AM CDT) Anatomical Region Laterality Modality Other Narrative Procedure Note Luis E Mcqueen MD - 03/03/2018 9:29 AM CDT ENDOSCOPY LAB Patient Name: Gladys Lopez Procedure Date: 03/03/2018 9:29 AM Date of : 1950 Admit Type: Outpatient Age: 68 Gender: Male Attending MD: Luis E Mcqueen M.D. Room: [place] [address] Note Status: Finalized Procedure Date No Time: [...] Thescope was passed under direct vision. The [id number] introduced through the anus and advanced to the thececum, identified by appendiceal orifice and ileocecal valve.The colonoscopy was performed with ease. The patienttolerated the procedure well. The quality of the bowelpreparation was excellent. The quality of the bowel preparation was evaluated using the BBPS ([place] Bowel PreparationScale) with scores of: Right Colon [...] Recently Relevant to Health Maintenance Insurance MEDICARE [facility] MEDICARE [facility] MEDICARE [facility] MEDICARE SUPPLEMENT Advance Directives For more information, please contact: [phone] * Full Code (Latest Code Status on File) Date Activated Date Inactivated Comments 03/03/2018 9:15 AM 03/03/2018 12:47 PM Care Teams Sand Digger Relationship Specialty Start Date End Date Maxine Perez MD PCP - General Family Medicine 06/17/23
--- OUTSIDE RECORDS SUMMARY | 2024-10-12 10:07 | XMS_ITS | Referral Summary ---
Author Organization [facility] Address [facility] [place] [address] Care Team Providers Care Cattyman Name Role Phone Maxine Perez MD Primary Care Provider Encounters Date Type Department Care Team Description 08/29/2024 Orders Only [facility] [address] [address] [address] [place] [id number] ProviderNga MD 08/29/2024 10:45 AM CDT Office Visit [facility] Cardiology at [address] [place] [address] Nigel Thomson MD Essential (primary) hypertension (Primary [...] 1 tablet (100 mcg total) by mouth slubber hand before breakfast Active tacrolimus (PROTOPIC) 0.03 % [...] 06/17/2023 Assessment & Plan (06/17/2023 2:09 PM RN TELEHEALTH): Chronic. Tolerates cholesterol medication. Check and adjust as needed. LDL goal less than 70 with optimal less than 55 Psoriasis 06/17/2023 Assessment & Plan (06/17/2023 2:12 PM RN TELEHEALTH): Mild issues but is struggling with some facial rash. Given high-risk distribution with see if insurance will cover a steroid sparing agent as first-line. If not covered they may require use of a topical corticosteroid but this would have to be with extreme caution Facial rash 06/17/2023 Assessment & Plan (06/17/2023 2:12 PM RN TELEHEALTH): Acute. Likely due to psoriasis given he [...] 06/17/2023 Assessment & Plan (06/17/2023 2:11 PM RN TELEHEALTH): Chronic. Suboptimally controlled. 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 Does not tolerate digital rectal exam. Has remotely seen Urology but not recently Assessment & Plan (06/17/2023 2:06 PM RN TELEHEALTH): Chronic elevation of around 10-12. Prostate MRI previously without signs of cancer but significant BPH. Getting serial PSA monitoring given can not tolerate digital rectal exam Nuclear sclerotic cataract of both eyes 07/26/19 19 Assessment & Plan (06/17/2023 2:05 PM RN TELEHEALTH): Chronic. Reports mild. 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 We will have him follow up with ophtho for monitoring Essential (primary) hypertension 11/23/2017 Assessment & Plan (06/17/2023 2:06 PM RN TELEHEALTH): Chronic. Uncontrolled. Off his lisinopril. He will restart. Continue other medications. Blood pressure goal less than 140/90. Discussed home monitoring PAD (peripheral artery disease) 09/12/2017 Overview (06/17/2023): 08/24/2017. It demonstrated the possibility of 50-99% distal right SFA stenosis and a 20-49% mid to distal left SFA stenosis and left popliteal stenosis. Assessment & Plan (06/17/2023 2:07 PM RN TELEHEALTH): Patient with peripheral arterial disease right greater [...] 09/08/2016 Assessment & Plan (06/17/2023 2:07 PM RN TELEHEALTH): Diabetes is chronic and well controlled on [...] 06/29/2016 Assessment & Plan (06/17/2023 2:08 PM RN TELEHEALTH): Patient is due for repeat colonoscopy. 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 Otherwise he will let me refer him to 1 of our specialists. Degenerative arthritis of left knee 06/29/2016 EDDA on CPAP 06/02/2015 Assessment & Plan (06/17/2023 2:06 PM RN TELEHEALTH): Chronic. Reports good compliance with CPAP nightly. Monitor History of anal fissures 04/21/2011 Assessment & Plan (06/17/2023 2:08 PM RN TELEHEALTH): Patient reports he can not tolerate digital rectal exams and that this precludes some of the evaluation for elevated PSA other than doing prostate MRIs and PSAs Hypothyroidism 02/16/2010 Assessment & Plan (06/17/2023 2:06 PM RN TELEHEALTH): Chronic. Clinically euthyroid. 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, Adair's disease and myxedema (HCC) LIPID PANEL Routine [...] ORDERABLES Final Resul t Performing Organization Address [facility] de Phone Number MICKGABRIELA FOWLER [phone] [place] [address] * (ABNORMAL) Hemoglobin A1c (08/03/2023 10:19 AM CDT) Hgb A1C 6.2(H) 4.0 - 5.6 % Estimated Average Glucose 131 mg/dL JERAMY FOWLER Comment: The ADA recommends reporting an estimated Average Glucose (eAG) with all Hemoglobin A1c results using the equation derived from a study of 507 normal and diabetic adults. Minority populations were underrepresented and children were not included. (Diabetes Care 31:0624-8217, 2008). The eAG is not equivalent to a fasting glucose. Blood Venous blood specimen / Unknown 08/03/2023 10:19 AM CDT 08/03/2023 1:57 PM CDT Narrative JERAMY FOWLER - 08/03/2023 3:12 PM CDT Fax results to Dr Eric Wu [phone] Bryce Reyes MD LAB BLOOD ORDERABLES Final Resul t Performing Organization Address [facility] de Phone Number JERAMY JANETH [address] [place] [address] * Lipid panel (08/03/2023 10:19 AM CDT) [...] CDT Fax results to Dr Eric Wu [phone] us Bryce Reyes MD LAB BLOOD ORDERABLES Final Resul t [facility] [address] [place] [address] * COLONOSCOPY (03/03/2018 9:29 AM CDT) Anatomical Region Laterality Modality Other Narrative Procedure Note Luis E Mcqueen MD - 03/03/2018 9:29 AM CDT ENDOSCOPY LAB Patient Name: Edita Lopez Procedure Date: 03/03/2018 9:29 AM Date of : 1950 Admit Type: Outpatient Age: 68 Gender: Male Attending MD: Luis E Mcqueen M.D. Room: [facility]IN [facility] 01 Note Status: Finalized Procedure Date No Time: [...] Thescope was passed under direct vision. The [id number] introduced through the anus and advanced to the thececum, identified by appendiceal orifice and ileocecal valve.The colonoscopy was performed with ease. The patienttolerated the procedure well. The quality of the bowelpreparation was excellent. The quality of the bowel preparation was evaluated using the BBPS ([place] Bowel PreparationScale) with scores of: Right Colon [...] Relevant to Health Maintenance Insurance MEDICARE [facility] MEDICARE [facility] MEDICARE BLUE CROSS MEDICARE SUPPLEMENT Advance Directives For more information, please contact: [phone] * Full Code (Latest Code Status on File) Date Activated Date Inactivated Comments 03/03/2018 9:15 AM 03/03/2018 12:47 PM Care Teams Cattyman Relationship Specialty Start Date End Date Maxine Perez MD PCP - General Family Medicine 06/17/23
[2024-10-12 12:23] LABS: Basophils Percent Auto 0.6 % (0.2-1.2); Eosinophils Absolute Auto 0.1 K/mm3 (0-0.3); Eosinophils Percent Auto 2.6 % (0-4.4); Hematocrit 43.5 % (42.0-52.0); Immature Granulocyte Absolute 0.01 K/mm3 (0.00-0.031); Immature Granulocyte Percent A 0.2 % (0-0.5); Lymphocytes Absolute Auto 1.44 K/mm3 (0.9-3.2); Lymphocytes Percent Auto 31.2 % (18.3-44.2); Mean Corpuscular HGB Conc 32.2 g/dl (32-36); Mean Corpuscular Hemoglobin 28.9 pg (26-34); Mean Corpuscular Volume 89.7 fl (80-100); Mean Platelet Volume 9.9 fl (7.4-10.4); Monocytes Absolute Auto 0.4 K/mm3 (0.1-0.6); Neutrophils Absolute Auto 2.7 K/mm3 (1.3-6.7); Neutrophils Percent Auto 57.4 % (45.5-73.1); Platelet Count Result 222 k/mm3 (150-375); Red Blood Count 4.85 M/mm3 (4.6-6.20); Red Cell Distribution Width 12.2 % (11.5-14.5); White Blood Count 4.6 K/mm3 (4.5-10.0)
[2024-10-12 12:37] LABS: Alanine Aminotransferase 27 U/L (6-50); Albumin Level 4.3 g/dL (3.5-5.1); Alkaline Phosphatase 60 U/L (38-126); Anion Gap 8 mmol/L (4-12); Aspartate Amino Transferase 42 U/L (17-59); Bilirubin,Total 0.8 mg/dL (0.2-1.3); Blood Urea Nitrogen 8 mg/dL (9-20); Calcium 9.5 mg/dL (8.4-10.2); Carbon Dioxide 25 mmol/L (22-30); Chloride 103 mmol/L (98-107); Cholesterol 112 mg/dL (0-200); Estimated Glomerular Filt Rate > 60; Glucose 117 mg/dL (65-110); HDL Direct 51 mg/dL; Potassium 3.9 mmol/L (3.4-5.0); Sodium 136 mmol/L (137-145); Total Protein 7.3 g/dL (6.3-8.2); Triglycerides 75 mg/dL (<150)
[2024-10-12 12:48] LABS: LDL Cholesterol Direct 41 mg/dL
[2024-10-12 13:43] LABS: Creatinine Urine 33.9 mg/dL
[2024-10-12 13:46] LABS: MALB Creatinine Ratio 531.6 mg/g (0-30); Microalbumin Urine Random 180.2 mg/L (0-16.7)
[2024-10-12 13:56] LABS: Vitamin D 25 Hydroxy 36.1 ng/mL
[2024-10-12 14:36] LABS: Hemoglobin A1C 6.2 % (<5.7)
== END 2024-10-12 09:59 | disposition home or self-care (01) ==
LOC: ANHGOSHLAB 09:59
PROVIDERS: PCP Family Medicine; Visit Provider Family Medicine
DX: E11.9 Type 2 diabetes mellitus without complications (principal); I10 Essential (primary) hypertension; E03.9 Hypothyroidism, unspecified; E55.9 Vitamin D deficiency, unspecified; Z00.00 Encounter for general adult medical examination without abnormal findings; E53.8 Deficiency of other specified B group vitamins; E78.5 Hyperlipidemia, unspecified
CPT/HCPCS: 36415; 80053; 80061; 82043; 82306; 82607; 83036; 84443; 85025

== ENCOUNTER 2025-03-27 11:41 | Outpatient (CLI) | payer MEDICARE, SELFPAY ==
[2025-03-27 13:07] LABS: Alanine Aminotransferase 32 U/L (6-50); Albumin Level 4.3 g/dL (3.5-5.1); Alkaline Phosphatase 60 U/L (38-126); Anion Gap 4 mmol/L (4-12); Aspartate Amino Transferase 43 U/L (17-59); Bilirubin,Total 0.6 mg/dL (0.2-1.3); Blood Urea Nitrogen 9 mg/dL (9-20); Calcium 9.6 mg/dL (8.4-10.2); Carbon Dioxide 29 mmol/L (22-30); Chloride 101 mmol/L (98-107); Estimated Glomerular Filt Rate > 60; Glucose 89 mg/dL (65-110); Potassium 4.2 mmol/L (3.4-5.0); Sodium 134 mmol/L (137-145); Total Protein 7.1 g/dL (6.3-8.2)
[2025-03-27 13:32] LABS: Thyroid Stimulating Hormone Reflex 3.000 uIU/mL (0.465-4.68)
[2025-03-28 13:38] LABS: Hemoglobin A1C 6.3 % (<5.7)
== END 2025-03-27 11:42 | disposition home or self-care (01) ==
PROVIDERS: PCP Family Medicine; Visit Provider Family Medicine
DX: E11.9 Type 2 diabetes mellitus without complications (principal); I10 Essential (primary) hypertension; E03.9 Hypothyroidism, unspecified
CPT/HCPCS: 36415; 80053; 83036; 84443